=== PATIENT | female | born 1995 | race Caucasian/White ===

== ENCOUNTER 2018-11-09 18:02 | Outpatient (CLI) | payer BC, OTHER ==
[2018-11-09 18:55] LABS: APPEARANCE,URINE CLEAR; BILIRUBIN,URINE NEGATIVE (NEGATIVE); COLOR,URINE STRAW; GLUCOSE, URINE NEGATIVE (NEGATIVE); KETONES,URINE NEGATIVE (NEGATIVE); LEUKOCYTE ESTERASE,URINE NEGATIVE (NEGATIVE); NITRITE,URINE NEGATIVE (NEGATIVE); PROTEIN,URINE NEGATIVE (NEGATIVE); URINE SPECIFIC GRAVITY 1.008; UROBILINOGEN,URINE NEGATIVE mg/dL (<2.0)
[2018-11-09 19:10] LABS: URINE AMPHETAMINES SCREEN NEGATIVE; URINE BARBITURATES SCREEN NEGATIVE; URINE BENZODIAZEPINES SCREEN NEGATIVE; URINE COCAINE SCREEN NEGATIVE; URINE MARIJUANA (THC) SCREEN NEGATIVE; URINE METHADONE SCREEN NEGATIVE; URINE PHENCYCLIDINE SCREEN NEGATIVE
== END 2018-11-09 19:53 | disposition home or self-care (01) ==
LOC: LC 18:02
PROVIDERS: ATTEND Obstetrics & Gynecology Gynecology
PROC: 4A1HXCZ Monitoring of Products of Conception, Cardiac Rate, External Approach (ICD-10-PCS; principal; 2018-11-09)
DX: O47.02 False labor before 37 completed weeks of gestation, second trimester (principal); Z3A.26 26 weeks gestation of pregnancy
CPT/HCPCS: 80307; 81001

== ENCOUNTER 2019-01-21 14:24 | Inpatient (IN) | payer BC, OTHER ==
[2019-01-21] MEDS ORDERED: PENICILLIN G-K 5 MILLION UNIT VIAL ONE ×2 (14:44→19:07)
[2019-01-21] MEDS ORDERED: ACETAMINOPHEN 325 MG TABLET ONE (15:02)
[2019-01-21 15:05] LABS: APPEARANCE,URINE CLEAR; BILIRUBIN,URINE NEGATIVE (NEGATIVE); COLOR,URINE YELLOW; GLUCOSE, URINE NEGATIVE (NEGATIVE); KETONES,URINE 80 mg/dL (NEGATIVE); LEUKOCYTE ESTERASE,URINE LARGE (NEGATIVE); NITRITE,URINE NEGATIVE (NEGATIVE); PROTEIN,URINE NEGATIVE (NEGATIVE); URINE SPECIFIC GRAVITY 1.012; UROBILINOGEN,URINE NEGATIVE mg/dL (<2.0)
[2019-01-21 15:20] LABS: URINE AMPHETAMINES SCREEN NEGATIVE; URINE BARBITURATES SCREEN NEGATIVE; URINE BENZODIAZEPINES SCREEN NEGATIVE; URINE COCAINE SCREEN NEGATIVE; URINE MARIJUANA (THC) SCREEN NEGATIVE; URINE METHADONE SCREEN NEGATIVE; URINE PHENCYCLIDINE SCREEN NEGATIVE
[2019-01-21] MEDS ORDERED: AMPICILLIN SODIUM 2 GM in NORMAL SALINE 100 ML IV ONE (16:00)
[2019-01-21] MEDS ORDERED: NALBUPHINE HCL INJ 10 MG/1 ML AMPULE ONE (16:58)
[2019-01-21] MEDS ORDERED: PROMETHAZINE HCL INJ 25 MG/1 ML VIAL ONE (16:58)
[2019-01-21] MEDS ORDERED: PROMETHAZINE HCL INJ 25 MG/1 ML VIAL IM ONE (17:03)
[2019-01-21] MEDS ORDERED: NALBUPHINE HCL INJ 10 MG/1 ML AMPULE IV ONE (17:03)
[2019-01-21] MEDS: RINGERS SOLUTION,LACTATED 1,000 ML IV PRN ×2 (17:43→19:07)
[2019-01-21] MEDS ORDERED: MAG HYDROX/AL HYDROX/SIMETH SUSP 30 ML UDCUP ONE (19:05)
[2019-01-21] MEDS ORDERED: RINGERS SOLUTION,LACTATED 1,000 ML IV PRN (19:26)
[2019-01-21] MEDS ORDERED: PENICILLIN G POTASSIUM 5,000,000 UNIT in DEXTROSE 5%-WATER 100 ML IV ONE (20:30)
[2019-01-21] MEDS ORDERED: MAG HYDROX/AL HYDROX/SIMETH SUSP 30 ML UDCUP PO ONE (20:30)
[2019-01-21] MEDS ORDERED: HYDROXYZINE PAMOATE 50 MG CAPSULE ONE (20:34)
[2019-01-21] MEDS ORDERED: HYDROXYZINE PAMOATE 50 MG CAPSULE PO ONE (21:30)
[2019-01-21] MEDS ORDERED: OXYTOCIN 10 UNIT/ML VIAL ONE (22:03)
[2019-01-21] MEDS ORDERED: MISOPROSTOL 0.2 MG TABLET ONE (22:04)
[2019-01-21] MEDS ORDERED: LIDOCAINE 1% INJ-PF (10 MG/ML) 30 ML SDV ONE (22:04)
[2019-01-21] MEDS ORDERED: OXYTOCIN/NORMAL SALINE 20 UNIT/1,000 ML RTUINJ ONE (22:04)
[2019-01-21 22:27] LABS: HEMATOCRIT 31.9 % (36.0-47.0); HEMOGLOBIN 11.2 g/dL (12.0-15.5); MEAN CORPUSCULAR HEMOGLOBIN 30.9 pg (27.0-33.4); MEAN CORPUSCULAR VOLUME 88 fl (80-97); PLATELET COUNT 279 10^3/uL (150-450); RED BLOOD COUNT 3.61 10^6/uL (3.72-5.28); RED CELL DISTRIBUTION WIDTH 12.6 % (11.5-14.0); WHITE BLOOD COUNT 26.5 10^3/uL (4.0-10.5)
[2019-01-21] MEDS ORDERED: EPHEDRINE SULFATE INJ 50 MG/1 ML AMPULE ONE (22:31)
[2019-01-21] MEDS ORDERED: FENTANYL/BUPIVACAINE/NS/PF 300 MCG/150 ML RTUINJ EPI ONE (22:31)
[2019-01-21] MEDS ORDERED: BUPIVACAINE HCL 0.25 % INJ/PF (2.5 MG/1 ML) 30 ML VIAL ONE (22:32)
[2019-01-21 22:44] LABS: ABSOLUTE LYMPHOCYTES# (MANUAL) 1.6 10^3/uL (0.5-4.7); ABSOLUTE MONOCYTES # (MANUAL) 0.8 10^3/uL (0.1-1.4); BASOPHILS % (MANUAL) 0 % (0-2); EOSINOPHILS % (MANUAL) 0 % (0-6); LYMPHOCYTES % (MANUAL) 6 % (13-45); MONOCYTES % (MANUAL) 3 % (3-13); SEGMENTED NEUTROPHILS % (MAN) 91 % (42-78); TOTAL CELLS COUNTED 100
[2019-01-21 22:46] LABS: PLATELET COMMENT ADEQUATE; POLYCHROMASIA SLIGHT; SCHISTOCYTES SLIGHT; TOXIC GRANULATION SLIGHT; TOXIC VACUOLATION PRESENT
[2019-01-22] MEDS ORDERED: PENICILLIN G-K 5 MILLION UNIT VIAL ONE ×4 (00:16→13:33)
[2019-01-22] MEDS: PENICILLIN G POTASSIUM 2,500,000 UNIT in DEXTROSE 5%-WATER 50 ML IV SCH ×4 (00:23→13:40)
[2019-01-22] MEDS ORDERED: ACETAMINOPHEN 325 MG TABLET ONE ×2 (00:24→09:34)
--- NOTE | 2019-01-22 00:31 | Admission Physical ---
Datetime Report Generated by CPN: 01/22/2019 00:30 CURRENT ADMISSION Chief Complaint: Uterine Contractions Chief Complaint Other: Painful uterine contractions Indication for Induction: Not Applicable Admit Impression : Active Labor Admit Impression- Other: Cervical change and bulging membranes. GBS + Admit Plan: Admit to Unit; Initiate Labor Protocol ALLERGIES Medication Allergies: No Medication Allergies: ceftriaxone (11/09/2018) Latex: No Latex Allergies Food Allergies: none Environmental Allergies: none OBSTETRICAL HISTORY EDC: 02/11/2019 00:00 : 1 Para: 0 Term: 0 : 0 SAB: 0 IAB: 0 Livin Gestational Diabetes: No Rh Sensitization: No Incompetent Cervix: No FAVIAN: No Infertility: No ART Treatment: No Uterine Anomaly: No IUGR: No Hx Previous C/S: No Macrosomia: No Hx Loss/Stillborn: No PIH: No Hx : No Placenta Previa/Abruption: No Depression/PP Depression: No PTL/PROM: No Post Hemorrhage: No Current Procedures: Ultrasound; NST Obstetrical History Comments: G1- current SEE RECORDS Alcohol: No Marijuana : No Cocaine: No Other Illicit Drugs: No Cigarettes: Never Smoker. [id number] MEDICAL HISTORY Diabetes: No Blood Transfusion: No Pulmonary Disease (Asthma, TB): No Breast Disease: No Hypertension: No Music Pastor Surgery: No Heart Disease: No Hosp/Surgery: Yes Autoimmune Disorder: No Anesthetic Complications: No Kidney Disease: No Abnormal Pap Smear: No Neuro/Epilepsy: No Psychiatric Disorders: No Other Medical Diseases: No Hepatitis/Liver Disease: No Significant Family History: No Varicosities/Phlebitis: No Trauma/Violence : No Thyroid Dysfunction: No Medical History Comments: Breast reduction surgery (2018) INFECTIOUS HISTORY Gonorrhea: No Genital Herpes: No Chlamydia: No Tuberculosis: No Syphilis: No Hepatitis: No HIV/AIDS Exposure: No Rash or Viral Illness: No HPV: No PHYSICAL EXAM General: Normal HEENT: Normal Neurologic: Normal Thyroid: Normal Heart: Normal Lungs: Normal Breast: Normal Back: Normal Abdomen: Normal Genitourinary Exam: Normal Extremities: Normal DTRs: Normal Pelvic Type: Adequate Vital Signs: Reviewed; Within Normal Limits VAGINAL EXAM Dilatation: 4 Effacement: 100 Station: 0 Contraction Comments: Ctx Q 3minutes MEMBRANES Pooling: Negative Membranes: Intact FETUS A EGA: 37.1 Monitoring: External US FHR- Baseline: 135 Variability: Moderate 6-25bpm Accelerations: 15X15 Decelerations: None FHR Category: Category II Presentation: Vertex Admit Comment: 23 yo G1 at 37.1 wks EGA in active labor. Regular ctx for 3 min with cervical change from 2 to 4 cm over the last 10 hours. Membranes intact but bulging. GBS + -Admit to LDR -NPO and IVFs -PCN for GBS prophylaxis -routine care -Desires epidural for pain management -Anticipate PLANS FOR LABOR AND DELIVERY Labor and Delivery: Plan Pain Management: Epidural Feeding Preference: Breast Benefit of Breast Feed Discussed: Yes Circumcision: N/A INFORMED CONSENT Informed Consent Obtained: Vaginal Delivery; Section Delivery; Vacuum/Forceps Assist; Risks, Benefits and Alternatives Discussed Signature: with User ID: [email or web address] : with User ID: [email or web address]
[2019-01-22] MEDS ORDERED: ACETAMINOPHEN 325 MG TABLET PO ONE (01:30)
[2019-01-22] MEDS ORDERED: LIDOCAINE 2% INJ-PF (20 MG/ML) 10 ML AMPUL ONE (08:12)
[2019-01-22] MEDS ORDERED: PROMETHAZINE HCL INJ 25 MG/1 ML VIAL ONE (08:56)
[2019-01-22] MEDS ORDERED: AMPICILLIN SOD INJ 2 GM VIAL ONE (09:39)
[2019-01-22] MEDS ORDERED: GENTAMICIN SULFATE INJ 80 MG/2 ML VIAL ONE ×2 (09:40→15:08)
[2019-01-22] MEDS ORDERED: DIPHENHYDRAMINE HCL 50 MG/ML VIAL ONE (10:17)
[2019-01-22] MEDS ORDERED: GENTAMICIN SULFATE INJ 80 MG/2 ML VIAL IV ONE (10:30)
[2019-01-22] MEDS ORDERED: EPHEDRINE SULFATE INJ 50 MG/1 ML AMPULE ONE (11:21)
[2019-01-22] MEDS ORDERED: BUPIVACAINE HCL 0.25 % INJ/PF (2.5 MG/1 ML) 30 ML VIAL ONE (11:22)
[2019-01-22] MEDS ORDERED: FENTANYL/BUPIVACAINE/NS/PF 300 MCG/150 ML RTUINJ EPI ONE (11:22)
[2019-01-22 11:23] LABS: HEMOGLOBIN 10.3 g/dL (12.0-15.5); MEAN CORPUSCULAR HEMOGLOBIN 30.7 pg (27.0-33.4); MEAN CORPUSCULAR HGB CONC 34.4 g/dL (32.0-36.0); MEAN CORPUSCULAR VOLUME 89 fl (80-97); PLATELET COUNT 259 10^3/uL (150-450); RED BLOOD COUNT 3.36 10^6/uL (3.72-5.28); RED CELL DISTRIBUTION WIDTH 12.9 % (11.5-14.0); WHITE BLOOD COUNT 24.5 10^3/uL (4.0-10.5)
[2019-01-22 11:41] LABS: ABSOLUTE MONOCYTES # (MANUAL) 0.5 10^3/uL (0.1-1.4); BAND NEUTROPHILS % (MANUAL) 3 % (3-5); BASOPHILS % (MANUAL) 0 % (0-2); EOSINOPHILS % (MANUAL) 0 % (0-6); LYMPHOCYTES % (MANUAL) 3 % (13-45); MONOCYTES % (MANUAL) 2 % (3-13); SEGMENTED NEUTROPHILS % (MAN) 91 % (42-78); TOTAL CELLS COUNTED 100
[2019-01-22 11:42] LABS: PLATELET COMMENT ADEQUATE; POLYCHROMASIA SLIGHT; TOXIC GRANULATION 2+
[2019-01-22] MEDS ORDERED: PSEUDOEPHEDRINE HCL 30 MG TABLET PO PRN (14:16)
[2019-01-22] MEDS ORDERED: DIBUCAINE 1% OINTMENT 56 GM TP PRN (14:16)
[2019-01-22] MEDS ORDERED: DIPHENHYDRAMINE HCL 25 MG CAPSULE PO PRN (14:16)
[2019-01-22] MEDS ORDERED: NA PHOS,M-B/NA PHOS,DI-BA (ADULT) 133 ML ENEMA PR PRN (14:16)
[2019-01-22] MEDS ORDERED: BENZOCAINE/MENTHOL AEROSOL SPRAY 56 ML TOP PRN (14:16)
[2019-01-22] MEDS ORDERED: GLYCERIN/WITCH HAZEL LEAF 1 EACH MED..WIPE TP PRN (14:16)
[2019-01-22] MEDS ORDERED: OXYTOCIN/NORMAL SALINE 20 UNIT/1,000 ML RTUINJ IV PRN (14:16)
[2019-01-22] MEDS ORDERED: PROMETHAZINE HCL INJ 25 MG/1 ML VIAL IV PRN (14:16)
[2019-01-22] MEDS ORDERED: ACETAMINOPHEN WITH CODEINE #3 TABLET PO PRN (14:16)
[2019-01-22] MEDS ORDERED: PROMETHAZINE HCL 25 MG TABLET PO PRN (14:16)
[2019-01-22] MEDS ORDERED: PROMETHAZINE HCL 25 MG SUPP.RECT PR PRN (14:16)
[2019-01-22] MEDS ORDERED: MEASLES,MUMPS&RUBELLA VACC/PF 0.5 ML VIAL SUBCUT PRN (14:16)
[2019-01-22] MEDS ORDERED: DIPH/PERTUSS(ACELL)/TETANUS VAC/PF 0.5 ML SYR (>=10YO) IM PRN (14:16)
[2019-01-22] MEDS ORDERED: MAGNESIUM HYDROXIDE SUSP 30 ML UDCUP PO PRN (14:16)
[2019-01-22] MEDS ORDERED: ACETAMINOPHEN 650 MG SUPP.RECT PR PRN (14:16)
[2019-01-22] MEDS ORDERED: ZOLPIDEM TARTRATE 5 MG TABLET PO PRN (14:16)
--- NOTE | 2019-01-22 15:34 | Delivery Summary ---
Del Sum A-C Datetime Report Generated by CPN: 01/22/2019 15:34 DELIVERY PERSONNEL DELIVERY PERSONNEL: [id number] Delivery Doctor:: Sheila Oliveira CNM Nurse Preanalytics Team Lead Certified:: Sheila Oliveira CNM Anesthesiologist:: Alfonso Fonseca MD Labor and Delivery Nurse:: Steph Jiang RNaccounting recruiter Nurse:: Thelma Padilla RN Nursery Nurse:: Avril Tejada RN Nursery Nurse:: Ina Cabral RN Sulfonation Equipment Operator/COLT: Berenice Padilla CNA II Additional Personnel: : NOLVIA Ghosh MATERNAL INFORMATION Delivery Anesthesia: Epidural Medications After Delivery: Pitocin Bolus-Please Comment Meds After Delivery Comment: Pitocin 20 units in 1000 ml nss open for bolus Delivery QBL: 76 Maternal Complications: Chorioamnionitis; Maternal Fever Provider Comments: live female at 1343 under epidural anesthesia. Apgars 7-8. Spontaneous respirations and cry. 3-vessel cord. Cord clamped x2, after 2-min delay, then cut by FOB. Placenta, membranes, and cord expelled at 1348, Love presentation. Appears intact. Perineum inspected, small abrasions, no repair needed. Patient tolerated procedure well. LABOR SUMMARY EDC: 02/11/2019 00:00 No. Babies in Womb: 1 Attempted: No Labor Anesthesia: Epidural LABOR INFORMATION Reason for Induction: Not Applicable Onset of Labor: 01/22/2019 04:47 Complete Dilatation: 01/22/2019 12:59 Oxytocin: N/A Group B Beta Strep: Positive Antibiotics # of Doses: 6 Antibiotics Time of Last Dose: 1337 Name of Antibiotic Given: Penicillin Steroids Given: None Reason Steroids Not Administered: Not Applicable MEMBRANES Membranes Rupture Method: Artificial Rupture of Membranes: 01/22/2019 08:51 Length of Rupture (hr): 4.87 Amniotic Fluid Color: Moderate Meconium Amniotic Fluid Amount: Moderate Amniotic Fluid Odor: Normal STAGES OF LABOR Stage 1 hr: 8 Stage 1 min: 12 Stage 2 hr: 0 Stage 2 min: 44 Stage 3 hr: 0 Stage 3 min: 5 Total Time in Labor hr: 9 Total Time in Labor min: 1 VAGINAL DELIVERY Episiotomy: None Laceration #1: Vaginal Laceration Extension #1: N/A Other Laceration: vaginal abrasions Laceration Repair: Not Applicable Sponge Count Correct: N/A Sharps Count Correct: Yes CSECTION DELIVERY Primary Indication: N/A Secondary Indication: N/A CSection Incidence: N/A Labor: N/A Elective: N/A CSection Incision: N/A BABY A INFORMATION Infant Delivery Date/Time: 01/22/2019 13:43 Method of Delivery: Vaginal Born in Route : No : N/A Forceps: N/A Vacuum Extraction: N/A Shoulder Dystocia : No PRESENTATION/POSITION BABY A Presentation: Cephalic Cephalic Presentation: Vertex Vertex Position: Right Occipital Anterior Breech Presentation: N/A PLACENTA INFORMATION BABY A Placenta Delivery Time : 01/22/2019 13:48 Placenta Method of Delivery: Spontaneous Placenta Status: Delivered SCORES BABY A Heart Rate 1 min: >100 bpm Resp Effort 1 min: Slow, Irregular Reflex Irritability 1 min: Cough or Sneeze or Pulls Away Muscle Tone 1 min: Some Flexion of Extremities Color 1 min: Blue/Pale Resuscitation Effort 1 min: Tactile Stimulation SCORE 1 MIN: 6 Heart Rate 5 min: >100 bpm Resp Effort 5 min: Good Cry Reflex Irritability 5 min: Cough or Sneeze or Pulls Away Muscle Tone 5 min: Active Motion Color 5 min: Body [place], Extremities Blue SCORE 5 MIN: 9 INFORMATION BABY A Gestational Age at Delivery: 37.1 Gestational Status: Early Term- 37- 38.6 Weeks Infant Outcome : Liveborn Infant Condition : Stable Sex: Female IDENTIFICATION BABY A Infant Verification Date/Time: 01/22/2019 14:39 ID Band Number: [id number] Mother's Name Verified: Yes Infant RN Verifying Infant: Naun Jiang, RN/ KKitty Padilla, RN WEIGHT/LENGTH BABY A Birthweight (gm): 2680 Weight (lb): 5 Infant Weight (oz): 15 Length (in): 19.00 Length (cm): 48.26 CORD INFORMATION BABY A No. Cord Vessels: 3 Nuchal Cord : N/A Cord Blood Taken: Yes-For Storage (Mom's Blood type +) Infant Suction: None ASSESSMENT BABY A Skin to Skin: Yes Skin to Skin Time (min): 60 Tele Tech/ALS Called : No Care By: K. Crimm, RN Transferred To: Remains with Mother BABY B INFORMATION : N/A SIGNATURES Assignment: Fernando Cast MD Signature: with User ID: [email or web address] : with User ID: [email or web address] : I personally evaluated and examined the patient in conjunction with the MLP and agree with the assessment, treatment plan and disposition.
[2019-01-22] MEDS: DOCUSATE SODIUM 100 MG CAPSULE PO SCH (17:59)
[2019-01-22] MEDS: FERROUS SULFATE 325 MG TABLET PO SCH (17:59)
[2019-01-22] MEDS ORDERED: GENTAMICIN SULFATE INJ 80 MG/2 ML VIAL IV SCH (18:00)
[2019-01-22] MEDS: FAMOTIDINE 20 MG TABLET PO SCH (22:53)
[2019-01-22] MEDS: IBUPROFEN 800 MG TABLET PO SCH (22:55)
[2019-01-23] MEDS: IBUPROFEN 800 MG TABLET PO SCH ×3 (06:12→21:36)
[2019-01-23 06:49] LABS: MEAN CORPUSCULAR HGB CONC 34.7 g/dL (32.0-36.0); MEAN CORPUSCULAR VOLUME 89 fl (80-97); PLATELET COUNT 208 10^3/uL (150-450); RED BLOOD COUNT 2.92 10^6/uL (3.72-5.28); WHITE BLOOD COUNT 19.8 10^3/uL (4.0-10.5)
--- NOTE | 2019-01-23 09:31 | PDOC PROGRESS REPORT ---
Subjective-OB Progress Note for:: 01/23/19 Subjective: doing well, hsb and baby in room, ambulating, eating well, feels good, scant bleeding Physical Exam (OB) Vital Signs: Temp Pulse Resp BP Pulse Ox 97.3 F 71 16 99/60 L 98 01/23/19 07:09 01/23/19 07:09 01/23/19 07:09 01/23/19 07:09 01/23/19 07:09 Intake & Output 01/22/19 01/23/19 01/24/19 06:59 06:59 06:59 Intake Total 175 Balance 175 Weight 64 kg - Lochia Lochia Amount: Scant < 10 ml Lochia Color: Rubra/Red - Abdomen Description: Soft, Round Fundal Description: Firm, Midline Fundal Height: u/u - u/2 Objective-Diagnostic Laboratory: 01/23/19 06:26 01/22/19 01/23/19 10:24 06:26 WBC 24.5 H 19.8 H RBC 3.36 L 2.92 L Hgb 10.3 L 9.0 L Hct 30.0 L 26.0 L MCV 89 89 MCH 30.7 31.0 MCHC 34.4 34.7 RDW 12.9 13.0 Plt Count 259 208 Seg Neutrophils % Not Reportable Assessment and Plan(PN) - Assessment and Plan (1) GBS (group B Streptococcus carrier), +RV culture, currently Is this a current diagnosis for this admission?: Yes (2) Chorioamnionitis, delivered, current hospitalization Is this a current diagnosis for this admission?: Yes (3) Normal vaginal delivery Is this a current diagnosis for this admission?: Yes - Time Spent with Patient Time with patient: Less than 15 minutes Medications reviewed and adjusted accordingly: Yes - Disposition Anticipated Discharge: Home Within: within 24 hours
[2019-01-23] MEDS: SENNOSIDES/DOCUSATE 8.6-50 MG 1 EACH TABLET PO SCH (09:34)
[2019-01-23] MEDS: FAMOTIDINE 20 MG TABLET PO SCH ×2 (09:34→21:35)
[2019-01-23] MEDS: FERROUS SULFATE 325 MG TABLET PO SCH ×2 (09:34→17:04)
[2019-01-23] MEDS: PRENATAL VITAMIN W DHA CAPSULE PO SCH (09:34)
[2019-01-23] MEDS: DOCUSATE SODIUM 100 MG CAPSULE PO SCH ×2 (09:35→17:04)
[2019-01-23] MEDS: ACETAMINOPHEN WITH CODEINE #3 TABLET PO PRN ×2 (09:36→17:10)
[2019-01-24] MEDS: IBUPROFEN 800 MG TABLET PO SCH ×2 (06:13→15:33)
--- NOTE | 2019-01-24 08:35 | PDOC PROGRESS REPORT ---
Subjective-OB Progress Note for:: 01/24/19 Subjective: Doing well, breast feeding, no c/o, feels good, ready to go home, no fever, eating well, scant bleeding Physical Exam (OB) Vital Signs: Temp Pulse Resp BP Pulse Ox 97.4 F 79 16 98/61 L 100 01/24/19 07:56 01/24/19 07:56 01/24/19 07:56 01/24/19 07:56 01/24/19 07:56 - PIH/Pre-Eclampsia DTR's: 1 + Clonus: Negative Headache: Absent Epigastric Pain: No Visual Changes: No - Lochia Lochia Amount: Scant < 10 ml Lochia Color: Rubra/Red - Abdomen Description: Soft Hernia Present: No Fundal Description: Firm, Midline Fundal Height: u/u - u/2 Objective-Diagnostic Laboratory: 01/23/19 06:26 Assessment and Plan(PN) - Assessment and Plan (1) GBS (group B Streptococcus carrier), +RV culture, currently Is this a current diagnosis for this admission?: Yes (2) Chorioamnionitis, delivered, current hospitalization Is this a current diagnosis for this admission?: Yes (3) Normal vaginal delivery Is this a current diagnosis for this admission?: Yes - Time Spent with Patient Time with patient: Less than 15 minutes Medications reviewed and adjusted accordingly: Yes - Disposition Anticipated Discharge: Home Within: within 24 hours
--- NOTE | 2019-01-24 08:40 | PDOC DISCHARGE SUMMARY ---
Impression - Admit/DC Date/PCP Admission Date/Primary Care Provider: 01/21/19 21:57 CARO OREILLY MD Discharge Date: 01/24/19 - Discharge Diagnosis (1) GBS (group B Streptococcus carrier), +RV culture, currently Is this a current diagnosis for this admission?: Yes (2) Chorioamnionitis, delivered, current hospitalization Is this a current diagnosis for this admission?: Yes (3) Normal vaginal delivery Is this a current diagnosis for this admission?: Yes - Additional Information Resuscitation Status: Full Code Discharge Diet: As Tolerated, Regular Discharge Activity: Activity As Tolerated, No Lifting Over 10 Pounds, No L ifting/Push/Pulling, Pelvic Rest Referrals: CARO OREILLY MD [Primary Care Provider] - Prescriptions: Ferrous Sulfate [Feosol 325 mg Tablet] 325 mg PO BID #60 tablet Home Medications: Pnv 102/Iron/Folate 1/Dss/Dha [Vitafol Fe+ Docusate Combo Pck] 1 tab PO DAILY 11/09/18 Ferrous Sulfate [Feosol 325 mg Tablet] 325 mg PO BID #60 tablet 01/24/19 HPI Gestational Age: 37.1 Reason(s) for Admission: Onset of Labor, Group B Strep Positive Procedures: NST, Ultrasound Intrapartum Procedure(s): Spontaneous Vaginal Delivery Intrapartum Procedure Note: chorio, maternal fever Complication(s) Note: abrasion, no suturing Hospital Course Hospital Course: routine Results Laboratory Results: WBC 19.8 10^3/uL (4.0-10.5) H 01/23/19 06:26 RBC 2.92 10^6/uL (3.72-5.28) L 01/23/19 06:26 Hgb 9.0 g/dL (12.0-15.5) L 01/23/19 06:26 Hct 26.0 % (36.0-47.0) L 01/23/19 06:26 MCV 89 fl (80-97) 01/23/19 06:26 MCH 31.0 pg (27.0-33.4) 01/23/19 06:26 MCHC 34.7 g/dL (32.0-36.0) 01/23/19 06:26 RDW 13.0 % (11.5-14.0) 01/23/19 06:26 Plt Count 208 10^3/uL (150-450) 01/23/19 06:26 Lymph % (Auto) Not Reportable 01/22/19 10:24 [place] % (Auto) Not Reportable 01/22/19 10:24 Eos % (Auto) Not Reportable 01/22/19 10:24 Baso % (Auto) Not Reportable 01/22/19 10:24 Absolute Neuts (auto) Not Reportable 01/22/19 10:24 Absolute Lymphs (auto) Not Reportable 01/22/19 10:24 Absolute Monos (auto) Not Reportable 01/22/19 10:24 Absolute Eos (auto) Not Reportable 01/22/19 10:24 Absolute Basos (auto) Not Reportable 01/22/19 10:24 Total Counted 100 01/22/19 10:24 Seg Neutrophils % Not Reportable 01/22/19 10:24 Seg Neuts % (Manual) 91 % (42-78) H 01/22/19 10:24 Band Neutrophils % 3 % (3-5) 01/22/19 10:24 Lymphocytes % (Manual) 3 % (13-45) L 01/22/19 10:24 Atypical Lymphs % 1 % (0) 01/22/19 10:24 Monocytes % (Manual) 2 % (3-13) L 01/22/19 10:24 Eosinophils % (Manual) 0 % (0-6) 01/22/19 10:24 Basophils % (Manual) 0 % (0-2) 01/22/19 10:24 Abs Neuts (Manual) 23.0 10^3/uL (1.7-8.2) H 01/22/19 10:24 Abs Lymphs (Manual) 1.0 10^3/uL (0.5-4.7) 01/22/19 10:24 Abs Monocytes (Manual) 0.5 10^3/uL (0.1-1.4) 01/22/19 10:24 Absolute Eos (Manual) 0.0 10^3/uL (0.0-0.6) 01/22/19 10:24 Abs Basophils (Manual) 0.0 10^3/uL (0.0-0.2) 01/22/19 10:24 Toxic Granulation 2+ 01/22/19 10:24 Toxic Vacuolation PRESENT 01/21/19 22:04 Platelet Comment ADEQUATE 01/22/19 10:24 Polychromasia SLIGHT 01/22/19 10:24 Schistocytes SLIGHT 01/21/19 22:04 Urine Color YELLOW 01/21/19 14:25 Urine Appearance CLEAR 01/21/19 14:25 Urine pH 6.0 (5.0-9.0) 01/21/19 14:25 Ur Specific [place] 1.012 01/21/19 14:25 Urine Protein NEGATIVE mg/dL (NEGATIVE) 01/21/19 14:25 Urine Glucose (UA) NEGATIVE mg/dL (NEGATIVE) 01/21/19 14:25 Urine Ketones 80 mg/dL (NEGATIVE) H 01/21/19 14:25 Urine Blood LARGE (NEGATIVE) H 01/21/19 14:25 Urine Nitrite NEGATIVE (NEGATIVE) 01/21/19 14:25 Urine Bilirubin NEGATIVE (NEGATIVE) 01/21/19 14:25 Urine Urobilinogen NEGATIVE mg/dL (<2.0) 01/21/19 14:25 Ur Leukocyte Esterase LARGE (NEGATIVE) H 01/21/19 14:25 Urine Ascorbic Acid NEGATIVE (NEGATIVE) 01/21/19 14:25 Urine Opiates Screen NEGATIVE 01/21/19 14:25 Urine Methadone Screen NEGATIVE 01/21/19 14:25 Ur Barbiturates Screen NEGATIVE 01/21/19 14:25 Ur Phencyclidine Scrn NEGATIVE 01/21/19 14:25 Ur Amphetamines Screen NEGATIVE 01/21/19 14:25 U Benzodiazepines Scrn NEGATIVE 01/21/19 14:25 Urine Cocaine Screen NEGATIVE 01/21/19 14:25 U Marijuana (THC) Screen NEGATIVE 01/21/19 14:25 RPR NONREACTIVE (NONREACTIVE) 01/21/19 22:04 Blood Type O POSITIVE 01/21/19 22:04 Antibody Screen NEGATIVE 01/21/19 22:04 Plan Health Concerns: normal PP course Plan of Treatment: start iron and PNV's Goals: no fever, routine Time Spent: Less than 30 Minutes
[2019-01-24 09:34] LABS: HEMATOCRIT 27.9 % (36.0-47.0); HEMOGLOBIN 9.6 g/dL (12.0-15.5); MEAN CORPUSCULAR HEMOGLOBIN 30.9 pg (27.0-33.4); MEAN CORPUSCULAR HGB CONC 34.4 g/dL (32.0-36.0); MEAN CORPUSCULAR VOLUME 90 fl (80-97); PLATELET COUNT 248 10^3/uL (150-450); RED BLOOD COUNT 3.11 10^6/uL (3.72-5.28); RED CELL DISTRIBUTION WIDTH 12.9 % (11.5-14.0); WHITE BLOOD COUNT 13.4 10^3/uL (4.0-10.5)
[2019-01-24] MEDS: DOCUSATE SODIUM 100 MG CAPSULE PO SCH (10:28)
[2019-01-24] MEDS: SENNOSIDES/DOCUSATE 8.6-50 MG 1 EACH TABLET PO SCH (10:28)
[2019-01-24] MEDS: PRENATAL VITAMIN W DHA CAPSULE PO SCH (10:28)
[2019-01-24] MEDS: FAMOTIDINE 20 MG TABLET PO SCH (10:29)
[2019-01-24] MEDS: FERROUS SULFATE 325 MG TABLET PO SCH (10:29)
[2019-01-24 14:47] VITALS: BP 98/61
== END 2019-01-24 15:30 | disposition home or self-care (01) | DRG 805 ==
LOC: LC 14:24 → LR 21:57 → 2S 01-22 16:22
PROVIDERS: ADMIT Obstetrics & Gynecology; ATTEND Obstetrics & Gynecology
PROC: 10E0XZZ Delivery of Products of Conception, External Approach (ICD-10-PCS; principal; 2019-01-22)
PROC: 10907ZC Drainage of Amniotic Fluid, Therapeutic from Products of Conception, Via Natural or Artificial Opening (ICD-10-PCS; 2019-01-22)
DX: O99.824 Streptococcus B carrier state complicating childbirth (principal); O41.1230 Chorioamnionitis, third trimester, not applicable or unspecified; Z37.0 Single live birth; Z3A.37 37 weeks gestation of pregnancy; Z88.1 Allergy status to other antibiotic agents
CPT/HCPCS: 36415; 59025; 80307; 81005; 85025; 85027; 86592; 86850; 86900; 86901; 88307; J0290; J1200; J1580; J2300; J2540; J2550; J2590; J3010; J3490; J7050